=== PATIENT | male | born 1995 | race Caucasian/White ===

== ENCOUNTER 2017-01-04 23:13 | Emergency (ER) | payer BC, OTHER ==
[2017-01-04 23:20] VITALS: TEMP 98.1
[2017-01-04] MEDS ORDERED: ONDANSETRON DISINTEGRATING 4 MG TAB PO ONE (23:45)
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
[2017-01-05 01:34] VITALS: BP 107/75; PULSE 75; RESP 16; O2SAT 98
== END 2017-01-05 01:33 | disposition home or self-care (01) ==
PROC: 0HQ1XZZ Repair Face Skin, External Approach (ICD-10-PCS; principal; 2017-01-04)
DX: S01.81XA Laceration without foreign body of other part of head, initial encounter (principal); V18.4XXA Pedal cycle driver injured in noncollision transport accident in traffic accident, initial encounter; Y92.410 Unspecified street and highway as the place of occurrence of the external cause; Y99.8 Other external cause status; Y93.55 Activity, bike riding

== ENCOUNTER 2017-02-15 19:28 | Emergency (ER) | payer OTHER ==
[2017-02-15 19:37] VITALS: BP 132/70; PULSE 79; RESP 18; TEMP 98.4; O2SAT 96
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
== END 2017-02-15 20:30 | disposition home or self-care (01) ==
DX: S63.502A Unspecified sprain of left wrist, initial encounter (principal); V49.49XA Driver injured in collision with other motor vehicles in traffic accident, initial encounter; Y92.410 Unspecified street and highway as the place of occurrence of the external cause; Y99.8 Other external cause status; Y93.89 Activity, other specified
CPT/HCPCS: L3908